=== PATIENT | female | born 1980 | race Caucasian/White ===

== ENCOUNTER 2023-05-26 09:55 | Emergency (ER) | payer OTHER, SELFPAY ==
[2023-05-26] VITALS (7 sets, daily range): BP systolic 130–178; BP diastolic 69–93; BMI 35.5
--- NOTE | 2023-05-26 10:56 | ED.GENMED ---
History of Present Illness
General
Chief Complaint: Blood Pressure Problem
Source: patient
Exam Limitations: none
Time Seen by Provider: 05/26/23 10:32
Travel History
Have you had any contact with someone who has COVID-19?: No
Do you have any symptoms of coronavirus? Fever > 100 degrees, chills, cough, shortness of breath, sore throat, loss of taste or smell, muscle aches, or headache?: No
History of Present Illness
History of Present Illness:
42-year-old female with history of hypothyroidism and strong family history of cardiac disease presents with chest discomfort and palpitations starting at 1 AM this morning and persistent with occasional sensation of hot and cold flashes. She saw
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 She has not been treated hypertension. She was sent here for further evaluation. She is concerned as her mother in her 40s from cardiac
disease and her dad in his 60s from cardiac disease. She does routinely follow-up with a screen making supervisor through Dr. Edmar Limon. Last seen by cardiology about 5 months ago. She has been getting routine EKGs which have been normal. She
does note occasional shortness of breath recently. She denies leg swelling or calf pain or recent travel. No other complaints at this time
Past History
Past History
ED Past Medical History: Other (Anemia)
ED Past Surgical History: Appendectomy, and Tonsilectomy
Social History
Tobacco: Non-smoker
Personal:
Living: with family
Family History
Family History: Early CAD
Phy Exam
Physical Exam
Physical Exam:
General: Well-appearing female no acute respiratory distress HEENT: Normocephalic atraumatic neck is
Heart: Regular rate and rhythm no murmurs lungs: Clear to auscultation bilaterally no wheezing
Abdomen: Soft nontender nondistended no guarding rebound normal bowel sounds
Extremities: No cyanosis or edema
Skin: Warm no rash or lesions
Course
Orders/Labs/Results
Orders:
Orders
05/26/23 10:46
CR Chest - 2 Views Urgent
Comment:
Reason For Exam: chest pain
05/26/23 10:54
COVID-19 Antigen Urgent
Source: Nasal Swab
Complete Blood Count/With Diff Urgent
Comprehensive Metabolic Panel Urgent
TSH Reflex To Free T4 Urgent
Troponin I Urgent
Influenza A+B Rapid Molecular Urgent
CHITRA Source: Nasal Swab
Specimen Description:
05/26/23 10:58
Electrocardiogram (*1) Urgent
Reason for Study: Chest Pain
EKG- Treatment ONCE
05/26/23 13:11
Troponin I Urgent
Abnormal Lab Results
05/26/23
10:54
Hgb 11.7 L g/dL
(12.0-16.0)
Hct 35.2 L %
(37.0-47.0)
MCV 75.5 L fL
(81.0-99.0)
MCH 25.1 L pg
(27.0-31.0)
RDW 19.0 H %
(11.5-14.5)
Abs Immat Gran (auto) 0.1 H 10^3/uL
(0-0.05)
Absolute Neuts (auto) 7.9 H 10^3/uL
(1.4-6.5)
Neutrophils % 81.0 H %
(42.2-75.2)
Lymphocytes % 12.3 L %
(20.5-51.1)
Carbon Dioxide 20 L mmol/L
(22-30)
Glucose 145 H mg/dl
(70-99)
05/26/23 10:54
05/26/23 10:54
Vital Signs
Initial and Last Documented VS:
Initial Vital Signs
Temp Pulse Resp BP Pulse Ox
99.8 F 94 16 176/90 100
05/26/23 09:57 05/26/23 09:57 05/26/23 09:57 05/26/23 09:57 05/26/23 09:57
Last Documented Vital Signs
Temp Pulse Resp BP Pulse Ox
99.8 F 67 15 130/69 97
05/26/23 09:57 05/26/23 13:21 05/26/23 11:30 05/26/23 13:21 05/26/23 12:49
MDM/Problems Addressed
Differential Diagnosis Includes:
Chest discomfort palpitations and elevated blood pressure. Significant family history cardiac disease. EKG pending will check troponin and TSH. Keep on monitor. Most recent blood pressure 170s over 80s.
*Critical Care Note
Total Time (30-74mins, 75-104mins- exclusive of procedures): Not Applicable
Update Note
Update Note:
Repeat blood pressure 138/69. Initial and repeat troponins undetectable. TSH 4.1. No arrhythmias noted on monitor. Chest x-ray clear. Recommend follow-up with either family doctor or cardiology for further evaluation of blood pressure.
Considered starting on antihypertensive however no indication to do so emergently.
ED Attending Note
-
Portions of this chart may have been created with voice recognition software.� Occasional wrong word or��sound alike� substitutions may have occurred due to the inherent limitations of voice recognition software.
Discharge Plan
Departure
Patient Disposition: Home (Routine Discharge)
Date of Disposition: 05/26/23
Time of Disposition: 14:26
Patient with high blood pressure during this ER visit?: No
Discharge Problem:
Elevated blood pressure reading
Instructions: High Blood Pressure (DC)
Prescriptions:
No Action
Proventil
1 puff inhalation Q4H PRN (Reason: breathing difficulty)
Patient Comments:
has not needed in months
Control
1 dose PO DAILY
Iron
1 tab PO DAILY
Motrin:
1 dose PO PRN PRN (Reason: pain)
Stool Softener
1 dose PO DAILY
Referrals:
María Guidry MD [Family Provider] -
Activity Restrictions/Additional Instructions:
Please follow-up with your family doctor and/or screen making supervisor pressure check. At this point no need to start you on any blood pressure medication
Interventions
Interventions:
*Risk Screen - Suicide Last Done: 05/26/23 10:23
*General Assessment Last Done: 05/26/23 10:23
*Neglect/Abuse Screening Last Done: 05/26/23 10:23
ED- Fall Risk Assessment Last Done: 05/26/23 10:23
*ED COVID-19 Vaccine History Last Done: 05/26/23 10:23
ED- Cardiac Assessment Last Done: 05/26/23 10:23
ED- Neurological Assessment Last Done: 05/26/23 10:23
ED- Pulmonary Assessment Last Done: 05/26/23 10:23
[2023-05-26 11:07] LABS: % Basophils 0.3 % (0-2); % Eosinophils 0.8 % (0-6); % Immature Granulocytes 0.5 % (0-0.5); % Lymphocytes 12.3 % (20.5-51.1); % Monocytes 5.1 % (1.7-9.3); Absolute Eosinophils 0.1 10^3/uL (0-0.7); Absolute Immature Granulocytes 0.1 10^3/uL (0-0.05); Absolute Lymphocytes 1.2 10^3/uL (1.2-3.4); Absolute Monocytes 0.5 10^3/uL (0.1-0.6); Absolute Neutrophils 7.9 10^3/uL (1.4-6.5); Hematocrit 35.2 % (37.0-47.0); Hemoglobin 11.7 g/dL (12.0-16.0); Mean Corp Hgb Conc. 33.2 g/dL (33.0-37.0); Mean Corpuscular Hgb 25.1 pg (27.0-31.0); Mean Corpuscular Volume 75.5 fL (81.0-99.0); Mean Platelet Volume 10.3 fL (7.4-10.4); Nucleated Red Blood Cells % 0 %; Platelet Count 327 10^3/uL (130-400); Red Blood Cell Count 4.66 10^6/uL (4.20-5.40); White Blood Cell Count 9.7 10^3/uL (4.8-10.8)
[2023-05-26 11:22] LABS: ALT (SGPT) 18 U/L (0-35); AST (SGOT) 28 U/L (14-36); Albumin 4.5 g/dl (3.5-5.0); Alkaline Phosphatase 90 U/L (38-126); Blood Urea Nitrogen 11 mg/dl (7-17); Calcium 9.5 mg/dl (8.4-10.2); Carbon Dioxide 20 mmol/L (22-30); Chloride 107 mmol/L (98-107); Estimated Creatinine Clearance 105 ml/min; Glucose 145 mg/dl (70-99); Potassium 4.4 mmol/L (3.5-5.1); Sodium 137 mmol/L (135-145); Total Bilirubin 0.9 mg/dl (0.2-1.3); eGFR > 60.00
[2023-05-26 11:28] LABS: COVID-19 Antigen Negative (Negative)
[2023-05-26 11:33] LABS: Troponin I < 0.012 ng/ml
[2023-05-26 13:42] LABS: Troponin I < 0.012 ng/ml
== END 2023-05-26 14:40 | disposition home or self-care (01) ==
LOC: EMR 09:55
PROVIDERS: Physician Assistant; EMERGENCY PHYSICIAN Emergency Medicine; FAMILY PHYSICIAN Internal Medicine
DX: R03.0 Elevated blood-pressure reading, without diagnosis of hypertension (principal); E03.9 Hypothyroidism, unspecified
CPT/HCPCS: 99285; 71046; 80053; 84443; 84484; 85025; 87502; 87811; 93005